=== PATIENT | male | born 1990 | race African-American/Black ===

== ENCOUNTER 2025-03-06 17:31 | Inpatient (IN) ==
[2025-03-06 17:57] LABS: Appearance Urine Clear (Clear); Glucose Urine UA Negative (Negative)
[2025-03-06 18:19] LABS: Amphetamines+Metham, Urine Neg (Neg); MDMA (Ecstacy), Urine Neg (Neg); Marijuana, Urine Neg (Neg)
[2025-03-06 18:29] LABS: Hematocrit (blood only) 41.3 % (42.0-52.0); Hemoglobin 14.4 g/dl (14.0-18.0); Mean Corpuscular Hemoglobin 28.1 pg (25.0-34.0); Mean Corpuscular Volume 80.7 fL (80.0-100.0); Platelet Count 224 K/uL (130-400); RDW Standard Deviation 45.0 fL (36.4-46.3); Red Blood Count 5.12 M/uL (4.70-6.10); White Blood Count 6.33 K/ul (4.8-10.8)
[2025-03-06 18:47] LABS: Alanine Aminotransferase 15.0 U/L (7-52); Albumin Globulin Ratio 1.3 (0.9-2); Albumin Level 4.1 gm/dl (3.4-5.0); Alkaline Phosphatase 95.0 U/L (34-104); Anion Gap 5.0 (3-11); Bilirubin,Total 0.3 mg/dl (0.2-1.0); Blood Urea Nitrogen 9.0 mg/dl (6-23); Calcium 8.9 mg/dl (8.6-10.3); Carbon Dioxide 22.0 mmol/L (21-32); Chloride 105.0 mmol/L (98-107); Creatinine Clr Calc Pharmacy 69.1 ml/min; Globulin 3.2 gm/dl (2.5-4.0); Glucose 85.0 mg/dl (70-99(Fasting)); Potassium 4.0 mmol/L (3.5-5.1); Sodium 132.0 mmol/L (136-145); Total Protein 7.3 gm/dl (6.0-8.3)
[2025-03-06 18:50] LABS: Immature Granulocytes # (auto) 0.01 K/uL (0.01-0.20); Immature Granulocytes % (auto) 0.2 %; Polychromasia 1+
[2025-03-06 19:03] LABS: Thyroid Stimulating Hormone 1.244 uIu/ml (0.300-4.500)
[2025-03-06 19:12] LABS: Acetaminophen < 3 ug/ml (10-30); Salicylate < 3.0 mg/dl (3.0-30)
--- NOTE | 2025-03-06 22:22 | Emergency Department Note ---
History of Present Illness General Chief complaint: Mental Health Evaluation Time Seen by Provider: 03/06/25 17:37 History of Present Illness Provider complaint: MEntal health evaluation Maximum Pain Intensity: 7 34-year-old male presents emergency department from [facility] for mental health evaluation. Patient is there for crack and meth abuse. Patient states he wants to after being there and wants to kill himself by slitting his wrist at [facility]. Home Medications Medication Instructions Recorded Confirmed Type bupropion HCl 100 mg tablet 100 mg PO QAM 03/06/25 03/06/25 History haloperidol decanoate 50 mg/mL 50 mg IM DIRECTED 03/06/25 03/06/25 History intramuscular solution lisinopril 5 mg tablet 5 mg PO DAILY 03/06/25 03/06/25 History melatonin 5 mg tablet 5 mg PO HS 03/06/25 03/06/25 History omeprazole 40 mg capsule,delayed 40 mg PO QAM 03/06/25 03/06/25 History release quetiapine 400 mg tablet 400 mg PO DAILY 03/06/25 03/06/25 History topiramate 100 mg tablet 100 mg PO BID 03/06/25 03/06/25 History umeclidinium 62.5 mcg-vilanterol 1 inh inhalation DAILY 03/06/25 03/06/25 History 25 mcg/actuation powdr for inhalation (Anoro Ellipta) Past Med/Surg History Problem List (Updated 03/06/25 @ 22:22 by Shai Knight MD) Suicidal ideations (Acute) Social History (Updated 03/06/25 @ 22:21 by Shai Knight MD) Smoking Status: Current every day smoker Tobacco Type: Cigarettes and E-cigarettes / Vaping Hx Substance Use: Yes Non-Prescribed Medications: Amphetamines and Crack / Cocaine Preferred Language: Citizen Of [place] Feels Safe at Home: Yes Physical Exam Vital Signs Vital Signs - 24 hr 03/06/25 17:40 03/06/25 19:58 Temperature 36.5 C Temperature Source Oral Pulse Rate 59 L Pulse Rate [Right Finger] 56 L Pulse Rhythm [Right Finger] Regular Pulse Strength [Right Finger] Normal Respiratory Rate 16 16 Respiratory Effort / Characteristics Non-Labored Respiratory Depth Normal Respiratory Pattern Regular Blood Pressure 123/86 Blood Pressure [Right Arm] 118/79 Blood Pressure Mean 98 Blood Pressure Mean [Right Arm] 92 Blood Pressure Position Semi-fowlers Blood Pressure Position [Right Arm] Lying Pulse Oximetry 100 99 Oxygen Delivery Method Room Air Room Air Sepsis Recent Fever Within 48 Hours No Sepsis New/Unexplained Change in Mental Status N/A Sepsis Action Taken by Nursing No Action Required Physical Exam GENERAL: oriented to person, place, and time. appears well-developed and well- nourished. HENT: Exam performed. - Head: Normocephalic and atraumatic. EYES: Conjunctivae and EOM are normal. Right eye exhibits no discharge. Left eye exhibits no discharge. No scleral icterus. NECK: Normal range of motion. Neck supple. No JVD present. CV: Normal rate, regular rhythm, normal heart sounds and intact distal pulses. There is no peripheral edema. Palpable radial pulses bue. PULM/CHEST: Effort normal and breath sounds normal. No respiratory distress. No stridor. no wheezes. no rales. NEURO: Motor and sensation grossly intact. PSYCH: Suicidal ideation. Course Course 173: The patient was evaluated in room A8. A complete history and physical exam was performed 2221: Vital signs stable. Patient medically cleared. Excepted to 3 S. Medical Decision Making Laboratory Data Attestation: I reviewed the patient's lab results. 03/06/25 18:01 03/06/25 18:01 Lab Results 03/06/25 03/06/25 Range/Units 17:40 18:01 WBC 6.33 (4.8-10.8) K/ul RBC 5.12 (4.70-6.10) M/uL Hgb 14.4 (14.0-18.0) g/dl Hct 41.3 L (42.0-52.0) % MCV 80.7 (80.0-100.0) fL MCH 28.1 (25.0-34.0) pg MCHC 34.9 (32.0-36.0) g/dL RDW Std Deviation 45.0 (36.4-46.3) fL RDW Coeff of Marjorie 15.3 H (11.5-14.5) % Plt Count 224 (130-400) K/uL MPV 10.4 (9.4-12.4) fL Immature Gran % (Auto) 0.2 % Neut % (Auto) 33.9 % Lymph % (Auto) 57.2 % [place] % (Auto) 7.3 % Eos % (Auto) 0.6 % Baso % (Auto) 0.8 % Neut # (Auto) 2.15 (1.40-6.50) K/uL Lymph # (Auto) 3.62 H (1.20-3.40) K/uL [place] # (Auto) 0.46 (0.11-0.59) K/uL Eos # (Auto) 0.04 (0.00-0.50) K/uL Baso # (Auto) 0.05 (0.00-0.20) K/uL Immature Gran # (Auto) 0.01 (0.01-0.20) K/uL Polychromasia 1+ Sodium 132 L (136-145) mmol/L Potassium 4.0 (3.5-5.1) mmol/L Chloride 105 (98-107) mmol/L Carbon Dioxide 22 (21-32) mmol/L Anion Gap 5 (3-11) BUN 9 (6-23) mg/dl Creatinine 1.29 (0.6-1.4) mg/dl Est Cr Clr Drug Dosing 69.1 ml/min eGFR 73.69 BUN/Creatinine Ratio 7.0 L (10-20) Glucose 85 (70-99(Fasting)) mg/dl Calcium 8.9 (8.6-10.3) mg/dl Total Bilirubin 0.3 (0.2-1.0) mg/dl AST 17 (13-39) U/L ALT 15 (7-52) U/L Alkaline Phosphatase 95 (34-104) U/L Total Protein 7.3 (6.0-8.3) gm/dl Albumin 4.1 (3.4-5.0) gm/dl Globulin 3.2 (2.5-4.0) gm/dl Albumin/Globulin Ratio 1.3 (0.9-2) TSH 1.244 (0.300-4.500) uIu/ml Urine Color Yellow Urine Appearance Clear (Clear) Urine pH 7.0 (4.5-7.5) Ur Specific [place] 1.004 (1.000-1.030) Urine Protein Negative (Negative) Urine Glucose (UA) Negative (Negative) Urine Ketones Negative (Negative) Urine Blood Negative (Negative) Urine Nitrite Negative (Negative) Urine Bilirubin Negative (Negative) Urine Urobilinogen Negative (Negative) Ur Leukocyte Esterase Negative (Negative) Urine Comment Salicylates < 3.0 L (3.0-30) mg/dl Urine Opiates Screen Neg (Neg) Ur Methadone, Qual Neg (Neg) Urine Fentanyl Screen Neg (Neg) Acetaminophen < 3 L (10-30) ug/ml Urine Barbiturates Neg (Neg) Ur Phencyclidine (PCP) Neg (Neg) U Amphetamin/Meth Scrn Neg (Neg) MDMA (Ecstasy) Screen Neg (Neg) U Benzodiazepines Scrn Neg (Neg) Ur Cocaine Metabolite Neg (Neg) U Marijuana (THC) Screen Neg (Neg) Ethyl Alcohol mg/dL < 10.0 (<10.0) mg/dl SARS-CoV-2, RNA, NAAT NEGATIVE (NEGATIVE) MDM Narrative 1737: The patient was evaluated in room A8. A complete history and physical exam was performed 2221: Vital signs stable. Patient medically cleared. Excepted to 3 S. Impression & Plan Suicidal ideations Discharge Plan Visit Data Chief Complaint: Mental Health Evaluation ED Provider: Shai Knight Discharge Problem: Suicidal ideations Patient Disposition: Admitted As Inpatient Condition: Fair Forms Stand Alone Forms: [facility], Suicide Prevention Resources Prescriptions Prescriptions: No Action omeprazole 40 mg capsule,delayed release(DR/EC) 40 mg PO QAM bupropion HCl 100 mg tablet 100 mg PO QAM haloperidol decanoate 50 mg/mL solution 50 mg IM DIRECTED Rx Instructions: EVERY TWO WEEKS lisinopril 5 mg tablet 5 mg PO DAILY topiramate 100 mg tablet 100 mg PO BID quetiapine 400 mg tablet 400 mg PO DAILY melatonin 5 mg tablet 5 mg PO HS umeclidinium-vilanterol [Anoro Ellipta] 62.5-25 mcg/actuation blister with device 1 inh INHALATION DAILY Referrals Referrals: PCP,NO [Primary Care Provider] -
[2025-03-06] MEDS ORDERED: ALUMINUM/MAGNESIUM SUSP 30 ML UDC PO PRN (23:07)
[2025-03-06] MEDS ORDERED: MAGNESIUM HYDROXIDE SUSP 30 ML UDC PO PRN (23:07)
[2025-03-06] MEDS ORDERED: BISMUTH SUBSALICYLATE 262 MG CHEW PO PRN (23:07)
[2025-03-06] MEDS ORDERED: SODIUM CHLORIDE 0.65% NA SOLN 45 ML (OCEAN) PRN (23:07)
[2025-03-06] MEDS: TOPIRAMATE 100 MG TAB PO STA (23:53)
[2025-03-06] MEDS: MELATONIN 3 MG TAB PO STA (23:53)
[2025-03-07] MEDS ORDERED: NICOTINE POLACRILEX 2 MG GUM MT PRN (00:59)
[2025-03-07] MEDS: TOPIRAMATE 100 MG TAB PO SCH (08:55)
--- NOTE | 2025-03-07 08:56 | History & Physical ---
Date of Service March 07, 2025 Impression / Recommendations Impression KAMALJIT JEAN-BAPTISTE is a 34-year-old M from [place], [place] who [facility], has a history of schizophrenia, bipolar disorder and BPD, and was admitted on 03/06/25 21:48 on a 201 voluntary commitment for suicidal ideation in the context of increasing auditory hallucinations during his withdrawal from psychostimulants. Differential diagnosis includes: Primary psychotic disorder versus substance- induced psychosis. evidence for substance-induced psychosis includes onset of psychotic symptoms occurred around onset of first drug use, around age 16, and has worsened while he is going through withdrawal. Evidence for primary psychotic disorder includes long-lasting auditory hallucinations that have come and gone over the past almost 20 years. The complicating factor, is that it is unclear how much sober time he has accumulated throughout those years as well. He stated he once remained sober for a full year from -, and did continue to have auditory hallucinations during that time, suggesting likely at this point he kindled a chronic psychotic disorder. Given his reports of significant mood fluctuations in the past, I did classify it as schizoaffective bipolar type. However the mood fluctuations could be complicated by his borderline personality diagnosis as well. Nonetheless, he does report he has previously had good stabilization on Haldol decanoate. H owever, he has been noticing lately that the shot seems to wear off several days to a week prior to when he is due for his next dose. He says he has tolerated the long-acting injectable well, and is interested in having an increase in his dose. I ordered 75 mg IM every 30 days, to be given today. I also ordered as needed Cogentin in case he develops EPS with the higher dose. It is likely that accumulating more sober time will also improve the intensity of the auditory hallucinations. He is already experiencing some relief being here as he feels safe on this unit. It is important to also keep in mind this patient's early developmental disruptions. He has possible early trauma, resulting in foster home placement around age 1. He also had early onset epilepsy, and a learning disorder which complicated his childhood. Finally, in adolescence he accumulated several concussions. finally, it is notable that patient's home medication list included 2 antipsychotics, Haldol and Seroquel. I did leave the Seroquel ordered for now while were adjusting the Haldol, and I will do my best to minimize use of the second antipsychotic if possible before discharge. Given he is already expe riencing auditory hallucinations, I did not see fit to decrease the Seroquel upon admission today. I will order fasting labs given he is on a second- generation antipsychotic. I also ordered a and an EKG for baseline QTc measurement. (1) Schizoaffective disorder: (2) Borderline personality disorder: (3) Learning disorder: (4) Head injuries: (5) GERD (gastroesophageal reflux disease): (6) Epilepsy: Plan the patient was admitted to the [facility] ([facility]) on q15 min checks (behavioral with suicide precautions) for safety. The patient will participate in group, recreational, and milieu therapies and will be offered additional individual and family sessions as clinically appropriate. New medications initiated: Haldol decanoate 75 mg every 30 days, first dose today melatonin 9 mg nightly Continue the following home medications: Topamax 100 mg twice daily Seroquel 400 mg daily at bedtime lisinopril 5 mg daily The following PRN medications will be started as well: Zofran 4 mg every 6 hours as needed nausea ibuprofen 600 mg every 6 hours as needed pain Vistaril 25 mg as needed anxiety Cogentin 1 mg twice daily as needed Overall, I spent a total of 80 minutes on this patients care, including review of chart/records, direct evaluation of the patient, ordering medication, coordination with nursing, interdisciplinary team meeting, and documentation. Inventory Assets Strengths: Desire for sobriety, help seeking and treatment oriented. Stable housing. Outpatient providers. Needs: Active psychosis, limited social supports/estranged from family Suicide Risk Level Suicide Risk Level: Moderate (q15 min suicide checks) Suicide Risk Level Comments: High-Moderate due to Active psychosis, previously with command hallucinations, and feeling overwhelmed. But feels safe in the hospital, able to contract for safety and agrees to let staff know should if plan or intent develops, or if patient feels unable to remain safe. Risk Factors Assessment Male: Yes Do You Have Access To A Gun?: No Health Problems: Yes Mental Health Diagnoses: Yes Substance Use Disorders: Yes Previous Attempt: Yes Previous Psychiatric Hospitalization: Yes Protective Factors Assessment : No Responsible for Young Children: No Employed: No Stable Relationships: No Supportive Family: No Good Rapport with Provider: Yes Psychiatric History Identifying Data KAMALJIT JEAN-BAPTISTE is a 34-year-old M from [place], [place] who currently was residing at [facility], has a history of schizophrenia, bipolar disorder and BPD, and was admitted on 03/06/25 21:48 on a 201 voluntary commitment for suicidal ideation in the context of increasing auditory hallucinations during his withdrawal from psychostimulants. Chief Complaint "My shot's not working" History of Present Illness Patient is not previously known to this unit. He does report a longstanding psychiatric history, including symptoms of primary psychotic disorder as well as manic depression and borderline personality. He was admitted to [facility] approximately 1 week ago for cocaine, crack and methamphetamine abuse. He said his last use was just prior to rehab, And he was using "a lot" daily for weeks. He could not estimate a quantity per day. Since he has been withdrawing, he has been experiencing cold sweats, shaking, brain fog, nausea and mood swings. Auditory hallucinations do occur off-and-on at baseline, but have been "stronger". As they were command in nature, telling him to hurt himself. He also was starting to have visual hallucinations, which he kiersten cribed as "entities", which could be shadowy in nature, or for instance he saw the bathroom like turning off and on. He denies any paranoia. The hallucinations were getting worse, to the point that he felt he could not take it, started having suicidal ideation, and asked for hospital admission. He does report he is due for his Haldol decanoate shot today. Patient reports that every month, around the time he is due for his shot, symptoms get worse for several days beforehand. Patient arrived late last night, and has been in bed since then. He also remains in bed due to back pain. He says "I tweaked it getting out of bed". Describes pain in the middle of his lower back, and denies radiation or numbness of his lower extremities. He reports he feels a little calmer on the unit. He does feel safe here. He continues to have suicidal ideation, but is not as intense. The voices are also "a little bit" quieter. Past Psychiatric History Previous Psych History: Developmental history is significant for patient being raised by his foster mom. He says he entered the system at age 1. He states he does have bio siblings, but then did not want to talk further about why he entered the foster system or where his siblings ended up. He did report he had a learning disability, and was in special education all day for the duration of his schooling. He made it to 12th grade and then failed. He said he is trying to get his GED now. he does also report he had multiple head injuries when he played football in high school. He states that auditory hallucinations started around age 16. It did start around the time he reported his first marijuana use, also at the age of 16. Cocaine and other psychostimulant use started later, about a year ago. He said his last inpatient hospitalization was in 2023 in [place], he is unsure how many total he has had. He does have a history of other rehab treatment in the past as well. He reports past diagnosis of bipolar disorder, and described ric as "I had get into a mood, and then I go on a binge." He be irritable and cut himself during those times. He also acknowledges a past diagnosis of borderline personality disorder He was in outpatient treatment and [place] just prior to coming here for rehab, and plans to return there for treatment eventually. He was living in housing through [facility] with a roommate. I believe it was [facility] that connected him with [facility]. No history. No reported legal history. Current Psychiatric Diagnosis: Substance induced psychosis Do You Have Access To A Gun?: No History of Previous Suicide Attempt: Yes Past Medication Trials: Listed as allergies are- BuSpar, fluoxetine, risperidone, trazodone patient reports Haldol DEC has worked very well for him in the past. Past Head Trauma/Neuro History History of Concussion/Seizure: Yes both concussions and seizures Allergies Allergy/AdvReac Type Severity Reaction Status Date / Time bee venom protein (honey bee) Allergy Unknown Unverified 03/06/25 23:22 buspirone Allergy Unknown Unverified 03/06/25 23:23 fluoxetine Allergy Unknown Unverified 03/06/25 23:23 risperidone Allergy Unknown Unverified 03/06/25 23:23 trazodone Allergy Unknown Unverified 03/06/25 23:24 Home Medications Medication Instructions Recorded Confirmed Type bupropion HCl 100 mg tablet 100 mg PO QAM 03/06/25 03/06/25 History haloperidol decanoate 50 mg/mL 50 mg IM DIRECTED 03/06/25 03/06/25 History intramuscular solution lisinopril 5 mg tablet 5 mg PO DAILY 03/06/25 03/06/25 History melatonin 5 mg tablet 5 mg PO HS 03/06/25 03/06/25 History omeprazole 40 mg capsule,delayed 40 mg PO QAM 03/06/25 03/06/25 History release quetiapine 400 mg tablet 400 mg PO DAILY 03/06/25 03/06/25 History topiramate 100 mg tablet 100 mg PO BID 03/06/25 03/06/25 History umeclidinium 62.5 mcg-vilanterol 1 inh inhalation DAILY 03/06/25 03/06/25 History 25 mcg/actuation powdr for inhalation (Anoro Ellipta) Family History Family History of: Doesn't Know Alcohol History Hx of Alcohol Use Over the Past 12 Months: Yes (1x per week. 3 beers per occasion) AUDIT Total Score: 3 Smoking Use Have You Smoked or Used Tobacco Products in the Last 30 Days: Yes tobacco type: cigarettes Smoking Status: Current every day smoker Smoking packs per day: 1 Substance History Hx of Prescription Med Misuse Over the Past 12 Months: No Hx of Over the Counter Med Misuse Over the Past 12 Months: No Hx of Inhalent Misuse Over the Past 12 Months: No Hx of Organic Substance Use Over the Past 12 Months: No Hx of Illegal Substances/Street Drug Use Over Past 12 Months: Yes (Crack cocaine and meth use prior to [facility] admission) Problems as a Result of Past Substance Use: Other Problems as a Result of Past Substance Use Comments: rehab Personal History Living Arrangements Comments: apartment funded by [employer], with a roommate in [place]. Was at [facility] rehab here. Born In: [place], [place] Childhood: Presumed early trauma given placed in foster care by age 1, and pt preferred to not discuss today. Highest Grade Completed: Did Not Graduate High School Highest Grade Completed Comment: 12th grade. Special education Marital Status: Single Number Of Children: 0 Beliefs That Will Affect Care: None Current Legal Problems: No Patient History Medical History GERD (gastroesophageal reflux disease) Head injuries Social History Smoking Status: Current every day smoker Tobacco Type: Cigarettes and E-cigarettes / Vaping Hx Substance Use: Yes Non-Prescribed Medications: Amphetamines and Crack / Cocaine Preferred Language: Slovak Communication Ability: Effective Financial Services Agent Required: No Beliefs That Will Affect Care: None Feels Safe at Home: Yes Gender Identity: Male Assistive Devices: Glasses Review of Systems Review of Systems: constitutional: No Weight Change, No Fever, +Chills, No Night Sweats ENT/Mouth: No Hearing Changes, No Nasal Congestion, No sore throat, No Swallowing Difficulty Eyes: No Vision Changes Cardiovascular: No Chest Pain, No SOB, No Edema, No Palpitations Respiratory: No Cough, No Wheezing, No Dyspnea Gastrointestinal: +Nausea, No Vomiting, No Diarrhea, No Constipation Urinary: No Frequency, No Hematuria, No Urinary Incontinence, No Dysuria Musculoskeletal: No Arthralgias, No Myalgias, No Joint Stiffness, + back pain Skin: No Skin Lesions, No Pruritis, No Hair Changes, Neuro: No Weakness, No Numbness, No Paresthesias, No Dizziness, No Headache, No Coordination Changes, No Recent Falls Heme/Lymph: No Bruising, No Bleeding Endocrine: No Polyuria, No Polydipsia, No Temperature Intolerance Physical Exam Psychiatric: Orientation: alert, oriented x 3, oriented to person and cooperative Apperance: appropriately dressed, appropriately groomed and appeared stated age Eye Contact: + fair eye contact Motor Behavior: no abnormal motor movements Speech: normal rate/rhythm/volume of speech Affect: + blunted affect and mood congruent with affect Mood: + depressed mood Thought Process: goal directed thought process, linear/logical thought process and clear/coherent thought process Thought Content: reality based without delusions Suicidal Thoughts: denies suicidal plan and denies suicidal intent; + reports suicidal thoughts Homicidal Thoughts: denies homicidal thoughts, denies homicidal plan and denies homicidal intent Hallucinations: + auditory hallucinations and + visual hallucinations Cognition: recent memory grossly intact, remote memory grossly intact, attention grossly intact and language grossly intact Estimated Intelligence: consistent with education level and + below average estimated intelligence Insight: + fair insight Judgment: + fair judgement Vital Signs (Past 24 Hours): Last Vital Signs Temp 36.7 C 03/07/25 06:20 Pulse 82 03/07/25 06:21 Resp 16 03/07/25 06:20 BP 99/69 L 03/07/25 06:21 Pulse Ox 99 03/06/25 23:15 O2 Del Method Room Air 03/06/25 23:15 Physical Examination: A physical exam was performed in the ED by Dr. Shai Knight for the purposes of medical clearance. I accept that physical as correct and adequate for the purposes of the inpatient physical exam. Results & Data ([facility]) Laboratory Results Laboratory Results - last 24 hr 03/06/25 03/06/25 17:40 18:01 WBC 6.33 RBC 5.12 Hgb 14.4 Hct 41.3 L MCV 80.7 MCH 28.1 MCHC 34.9 RDW Std Deviation 45.0 RDW Coeff of Marjorie 15.3 H Plt Count 224 MPV 10.4 Immature Gran % (Auto) 0.2 Neut % (Auto) 33.9 Lymph % (Auto) 57.2 [place] % (Auto) 7.3 Eos % (Auto) 0.6 Baso % (Auto) 0.8 Neut # (Auto) 2.15 Lymph # (Auto) 3.62 H [place] # (Auto) 0.46 Eos # (Auto) 0.04 Baso # (Auto) 0.05 Immature Gran # (Auto) 0.01 Polychromasia 1+ Sodium 132 L Potassium 4.0 Chloride 105 Carbon Dioxide 22 Anion Gap 5 BUN 9 Creatinine 1.29 Est Cr Clr Drug Dosing 69.1 eGFR 73.69 BUN/Creatinine Ratio 7.0 L Glucose 85 Calcium 8.9 Total Bilirubin 0.3 AST 17 ALT 15 Alkaline Phosphatase 95 Total Protein 7.3 Albumin 4.1 Globulin 3.2 Albumin/Globulin Ratio 1.3 TSH 1.244 Urine Color Yellow Urine Appearance Clear Urine pH 7.0 Ur Specific [place] 1.004 Urine Protein Negative Urine Glucose (UA) Negative Urine Ketones Negative Urine Blood Negative Urine Nitrite Negative Urine Bilirubin Negative Urine Urobilinogen Negative Ur Leukocyte Esterase Negative Urine Comment Salicylates < 3.0 L Urine Opiates Screen Neg Ur Methadone, Qual Neg Urine Fentanyl Screen Neg Acetaminophen < 3 L Urine Barbiturates Neg Ur Phencyclidine (PCP) Neg U Amphetamin/Meth Scrn Neg MDMA (Ecstasy) Screen Neg U Benzodiazepines Scrn Neg Ur Cocaine Metabolite Neg U Marijuana (THC) Screen Neg Ethyl Alcohol mg/dL < 10.0 SARS-CoV-2, RNA, NAAT NEGATIVE Current Inpatient Medications Current Inpatient Medications: Current Inpatient Medications Acetaminophen (Acetaminophen 325 Mg Tab) 650 mg PO Q4H PRN PRN Reason: Headache or Minor Fever Stop: 04/05/25 23:06 Al Hydrox/Mg Hydrox/Simethicone (Aluminum/Magnesium Susp 30 Ml Udc) 30 ml PO Q4H PRN PRN Reason: GI Upset Stop: 04/05/25 23:06 Bismuth Subsalicylate (Bismuth Subsalicylate 262 Mg Chew) 2 tab PO Q30M PRN PRN Reason: Loose Stool/Diarrhea Stop: 04/05/25 23:06 Hydroxyzine HCl (Hydroxyzine Hcl 25 Mg Tab) 50 mg PO HSZ PRN PRN Reason: Insomnia Stop: 04/05/25 23:06 Hydroxyzine HCl (Hydroxyzine Hcl 25 Mg Tab) 25 mg PO Q4H PRN PRN Reason: Anxiety Stop: 04/05/25 23:06 Influenza Virus Vacc Triv Types A&B (Influenza Vacc [id number](6m+)/Pf (Iiv3) 0.5ml Syr) 0.5 ml IM .ONCE ONE Stop: 03/07/25 09:01 Lisinopril (Lisinopril 5 Mg Tab) 5 mg PO QAM JEAN MARIE Stop: 04/06/25 08:59 Magnesium Hydroxide (Magnesium Hydroxide Susp 30 Ml Udc) 30 ml PO DAILY PRN PRN Reason: Constipation Stop: 04/05/25 23:06 Melatonin (Melatonin 3 Mg Tab) 6 mg PO HS JEAN MARIE Stop: 04/06/25 21:59 Nicotine Polacrilex (Nicotine Polacrilex 2 Mg Gum) 1 piece MT Q2H PRN PRN Reason: Nicotine Withdrawal Symptoms Stop: 04/06/25 00:58 Olanzapine (Olanzapine 5 Mg Tablet) 5 mg PO Q6 PRN PRN Reason: hallucinations/agitation Stop: 04/06/25 00:00 Pantoprazole Sodium (Pantoprazole 40 Mg Tab) 40 mg PO QAM JEAN MARIE Stop: 04/06/25 08:59 Quetiapine Fumarate (Quetiapine Fumarate 200 Mg Tab) 400 mg PO HS JEAN MARIE Stop: 04/06/25 21:59 Sodium Chloride (Sodium Chloride 0.65% Na Soln 45 Ml ([place])) 1 - 2 sprays NA PRN PRN PRN Reason: Nasal Dryness/Congestion Stop: 04/05/25 23:06 Topiramate (Topiramate 100 Mg Tab) 100 mg PO BID JEAN MARIE Stop: 04/06/25 08:59
[2025-03-07] MEDS: ACETAMINOPHEN 325 MG TAB PO PRN (09:54)
[2025-03-07] MEDS ORDERED: BENZTROPINE MESYLATE 1 MG TAB PO PRN (15:51)
[2025-03-07] MEDS: HALOPERIDOL DECANOATE INJ 50 MG/ML VIAL IM SCH (16:14)
[2025-03-07] MEDS ORDERED: ONDANSETRON 4 MG OD TAB PO PRN (16:18)
[2025-03-07] MEDS ORDERED: IBUPROFEN 600 MG TAB PO PRN (16:18)
[2025-03-07] MEDS: MELATONIN 3 MG TAB PO SCH (21:06)
[2025-03-07] MEDS ORDERED: MELATONIN 3 MG TAB PO SCH ×2 (22:00)
[2025-03-08 08:05] LABS: Anion Gap 6.0 (3-11); Blood Urea Nitrogen 18.0 mg/dl (6-23); Calcium 9.1 mg/dl (8.6-10.3); Carbon Dioxide 22.0 mmol/L (21-32); Chloride 105.0 mmol/L (98-107); Cholesterol 176.0 mg/dl (0-200); Creatinine Clr Calc Pharmacy 64.2 ml/min; Glucose 99.0 mg/dl (70-99(Fasting)); HDL Cholesterol 43.0 mg/dl; Potassium 4.1 mmol/L (3.5-5.1); Sodium 133.0 mmol/L (136-145); Triglycerides 152.0 mg/dl (0-150)
--- NOTE | 2025-03-08 08:51 | Psychiatric Progress Note ---
Date of Service March 08, 2025 Impression / Recommendations Impression KAMALJIT JEAN-BAPTISTE is a 34-year-old M from [place], [place] who currently was residing at [facility], has a history of schizophrenia, bipolar disorder and BPD, and was admitted on 03/06/25 21:48 on a 201 voluntary commitment for suicidal ideation in the context of increasing auditory hallucinations during his withdrawal from psychostimulants. Differential diagnosis includes: Primary psychotic disorder versus substance- induced psychosis. evidence for substance-induced psychosis includes onset of psychotic symptoms occurred around onset of first drug use, around age 16, and has worsened while he is going through withdrawal. Evidence for primary psychotic disorder includes long-lasting auditory hallucinations that have come and gone over the past almost 20 years. The complicating factor, is that it is unclear how much sober time he has accumulated throughout those years as well. He stated he once remained sober for a full year from -, and did continue to have auditory hallucinations during that time, suggesting likely at this point he kindled a chronic psychotic disorder. Given his reports of significant mood fluctuations in the past, I did classify it as schizoaffective bipolar type. However the mood fluctuations could be complicated by his borderline personality diagnosis as well. Nonetheless, he does report he has previously had good stabilization on Haldol decanoate. H owever, he has been noticing lately that the shot seems to wear off several days to a week prior to when he is due for his next dose. He says he has tolerated the long-acting injectable well, and is interested in having an increase in his dose. I ordered 75 mg IM every 30 days, to be given today. I also ordered as needed Cogentin in case he develops EPS with the higher dose. It is likely that accumulating more sober time will also improve the intensity of the auditory hallucinations. He is already experiencing some relief being here as he feels safe on this unit. It is important to also keep in mind this patient's early developmental disruptions. He has possible early trauma, resulting in foster home placement around age 1. He also had early onset epilepsy, and a learning disorder which complicated his childhood. Finally, in adolescence he accumulated several concussions. finally, it is notable that patient's home medication list included 2 antipsychotics, Haldol and Seroquel. I did leave the Seroquel ordered for now while were adjusting the Haldol, and I will do my best to minimize use of the second antipsychotic if possible before discharge. Given he is already expe riencing auditory hallucinations, I did not see fit to decrease the Seroquel upon admission today. I will order fasting labs given he is on a second- generation antipsychotic. I also ordered a and an EKG for baseline QTc measurement. A: patient reporting full resolution of both suicidal ideations and auditory/visual hallucinations. He is actually requesting to transfer back to the rehab as he plans to complete his treatment there. I encouraged him to attend programming here to show that he is ready for the programming back at [facility]. He was receptive to this. No medication changes needed today. Will have social work touch in with [facility] regarding possible transfer tomorrow, if patient's symptoms remain stable. (1) Schizoaffective disorder: (2) Borderline personality disorder: (3) Learning disorder: (4) Head injuries: (5) GERD (gastroesophageal reflux disease): (6) Epilepsy: Plan 03/08/25: good improvement. Continue current medication and treatment. 03/07/25: The patient was admitted to the [facility] ([facility] unit) on q15 min checks (behavioral with suicide precautions) for safety. The patient will participate in group, recreational, and milieu therapies and will be offered additional individual and family sessions as clinically appropriate. New medications initiated: Haldol decanoate 75 mg every 30 days, first dose today melatonin 9 mg nightly Continue the following home medications: Topamax 100 mg twice daily Seroquel 400 mg daily at bedtime lisinopril 5 mg daily The following PRN medications will be started as well: Zofran 4 mg every 6 hours as needed nausea ibuprofen 600 mg every 6 hours as needed pain Vistaril 25 mg as needed anxiety Cogentin 1 mg twice daily as needed Overall, I spent a total of 25 minutes on this patients care, including review of chart/records, direct evaluation of the patient, ordering medication, coordination with nursing, interdisciplinary team meeting, and documentation. Inventory Assets Strengths: Desire for sobriety, help seeking and treatment oriented. Stable housing. Outpatient providers. Needs: Active psychosis, limited social supports/estranged from family Suicide Risk Level Suicide Risk Level: Low (q15 min observation checks) Suicide Risk Level Comments: Low, since both psychosis and suicidal thoughts have resolved. feels safe in the hospital, able to contract for safety and agrees to let staff know should if plan or intent develops, or if patient feels unable to remain safe. Risk Factors Assessment Male: Yes Do You Have Access To A Gun?: No Health Problems: Yes Mental Health Diagnoses: Yes Substance Use Disorders: Yes Previous Attempt: Yes Previous Psychiatric Hospitalization: Yes Hopelessness: No Protective Factors Assessment : No Responsible for Young Children: No Employed: No Stable Relationships: No Supportive Family: No Good Rapport with Provider: Yes Interval History Chief Complaint "[]". Review of Systems Sleep Information Total Hours of Sleep: 10.25 Sleep Comments: Admitted early in shift Meal Information Percent Meal Consumed - Breakfast: 75 Percent Meal Consumed - Lunch: 100 Percent Meal Consumed - Dinner: 100 Subjective Subjective Patient was seen & assessed and interval progress reviewed with [nursing and social work Per report: mood 05/28 and "content" isolative other than meals slept 10.25 hrs adherent with meds haldol dec given - also requested PRN haldol PO for distressing flashback at pt's request I met with the patient privately in his room. he reported that suicidal ideation and auditory hallucinations resolved yesterday and have not recurred. He said he is feeling very good, reports his mood today is 9 out of 10. Adverse reactions to the increased Haldol dose. He did have a distressing flashback last evening, but this has not recurred. He has been more visible and out of his room so far today. I encouraged him to attend groups, and he was quite receptive to that. He said his back pain is still present, but much better than yesterday. He is looking forward to going back to the rehab, and actually requested for transfer today. Physical Exam Psychiatric Orientation: alert, oriented x 3, oriented to person and cooperative Apperance: appropriately dressed and appropriately groomed Eye Contact: good eye contact Motor Behavior: steady gait and station and no abnormal motor movements; n EPS Speech: normal rate/rhythm/volume of speech Affect: euthymic affect and mood congruent with affect Euthymic Thought Process: goal directed thought process, linear/logical thought process, clear/coherent thought process and thought association intact Thought Content: reality based without delusions Suicidal Thoughts: denies suicidal thoughts, denies suicidal plan and denies suicidal intent Homicidal Thoughts: denies homicidal thoughts, denies homicidal plan and denies homicidal intent Hallucinations: no auditory hallucinations and no visual hallucinations Cognition: recent memory grossly intact, remote memory grossly intact, attention grossly intact and language grossly intact Estimated Intelligence: consistent with education level Insight: good insight Judgment: good judgement Vital Signs (Past 24 Hours) Last Vital Signs Temp 36.7 C 03/08/25 06:26 Pulse 87 03/08/25 06:27 Resp 16 03/08/25 06:26 BP 113/79 03/08/25 06:27 Pulse Ox 99 03/06/25 23:15 O2 Del Method Room Air 03/06/25 23:15 A physical exam was performed in the ED by Dr. Shai Knight for the purposes of medical clearance. I accept that physical as correct and adequate for the purposes of the inpatient physical exam. Results & Data ([facility]) Laboratory Results Laboratory Results - last 24 hr 03/08/25 07:32 Sodium 133 L Potassium 4.1 Chloride 105 Carbon Dioxide 22 Anion Gap 6 BUN 18 Creatinine 1.39 Est Cr Clr Drug Dosing 64.2 eGFR 67.38 BUN/Creatinine Ratio 12.9 Glucose 99 Estimat Average Glucose Pending Hemoglobin A1c Pending Calcium 9.1 Triglycerides 152 H Cholesterol 176 LDL Cholesterol, Calc 103 VLDL Cholesterol, Calc 30 HDL Cholesterol 43 Cholesterol/HDL Ratio 4.1 Current Inpatient Medications Current Inpatient Medications: Current Inpatient Medications Acetaminophen (Acetaminophen 325 Mg Tab) 650 mg PO Q4H PRN PRN Reason: Headache or Minor Fever Stop: 04/05/25 23:06 Last Admin: 03/07/25 09:54 Dose: 650 mg Al Hydrox/Mg Hydrox/Simethicone (Aluminum/Magnesium Susp 30 Ml Udc) 30 ml PO Q4H PRN PRN Reason: GI Upset Stop: 04/05/25 23:06 Benztropine Mesylate (Benztropine Mesylate 1 Mg Tab) 1 mg PO BID PRN PRN Reason: EPS Stop: 04/06/25 20:59 Bismuth Subsalicylate (Bismuth Subsalicylate 262 Mg Chew) 2 tab PO Q30M PRN PRN Reason: Loose Stool/Diarrhea Stop: 04/05/25 23:06 Haloperidol Decanoate (Haloperidol Decanoate Inj 50 Mg/Ml Vial) 75 mg IM Q30D JEAN MARIE Stop: 04/06/25 15:59 Last Admin: 03/07/25 16:14 Dose: 75 mg Hydroxyzine HCl (Hydroxyzine Hcl 25 Mg Tab) 50 mg PO HSZ PRN PRN Reason: Insomnia Stop: 04/05/25 23:06 Hydroxyzine HCl (Hydroxyzine Hcl 25 Mg Tab) 25 mg PO Q4H PRN PRN Reason: Anxiety Stop: 04/05/25 23:06 Ibuprofen (Ibuprofen 600 Mg Tab) 600 mg PO QID PRN PRN Reason: Moderate Pain (Scale 4, 5, 6) Stop: 04/06/25 16:59 Lisinopril (Lisinopril 5 Mg Tab) 5 mg PO QAM JEAN MARIE Stop: 04/06/25 08:59 Last Admin: 03/07/25 09:54 Dose: 5 mg Magnesium Hydroxide (Magnesium Hydroxide Susp 30 Ml Udc) 30 ml PO DAILY PRN PRN Reason: Constipation Stop: 04/05/25 23:06 Melatonin (Melatonin 3 Mg Tab) 9 mg PO HS JEAN MARIE Stop: 04/06/25 21:59 Last Admin: 03/07/25 21:06 Dose: 9 mg Nicotine Polacrilex (Nicotine Polacrilex 2 Mg Gum) 1 piece MT Q2H PRN PRN Reason: Nicotine Withdrawal Symptoms Stop: 04/06/25 00:58 Ondansetron HCl (Ondansetron 4 Mg Od Tab) 4 mg PO Q6H PRN PRN Reason: Nausea Stop: 04/06/25 16:17 Pantoprazole Sodium (Pantoprazole 40 Mg Tab) 40 mg PO QAM JEAN MARIE Stop: 04/06/25 08:59 Last Admin: 03/07/25 08:55 Dose: 40 mg Quetiapine Fumarate (Quetiapine Fumarate 200 Mg Tab) 400 mg PO HS JEAN MARIE Stop: 04/06/25 21:59 Last Admin: 03/07/25 21:05 Dose: 400 mg Sodium Chloride (Sodium Chloride 0.65% Na Soln 45 Ml ([place])) 1 - 2 sprays NA PRN PRN PRN Reason: Nasal Dryness/Congestion Stop: 04/05/25 23:06 Topiramate (Topiramate 100 Mg Tab) 100 mg PO BID JEAN MARIE Stop: 04/06/25 08:59 Last Admin: 03/07/25 21:05 Dose: 100 mg Mental Health & Subst Abuse Tx Therapist Name of Therapist: Nayely shoemaker [facility] Report [facility] Name of Report Checker: [facility] [place]
[2025-03-08 11:21] LABS: Hemoglobin A1C 5.6 % (4.5-5.6)
--- NOTE | 2025-03-09 06:07 | Electrocardiogram Report ---
Test Reason : Blood Pressure : */* mmHG Vent. Rate : 59 BPM Atrial Rate : 59 BPM P-R Int : 162 ms QRS Dur : 84 ms QT Int : 392 ms P-R-T Axes : 45 6 28 degrees QTcB Int : 388 ms Sinus bradycardia Septal infarct , age undetermined Abnormal ECG No previous ECGs available Confirmed by Abhishek Hogan ([id number]) on 03/09/2025 6:07:03 AM Referred By: REFERRED SELF Confirmed By: Abhishek Hogan
[2025-03-09] MEDS: INFLUENZA VACC TS2025-26(6m+)/PF (IIV3) 0.5mL Syr IM ONE (09:28)
--- NOTE | 2025-03-10 14:02 | Discharge Summary ---
Date of Service March 10, 2025 History of Present Illness Patient is not previously known to this unit. He does report a longstanding psychiatric history, including symptoms of primary psychotic disorder as well as manic depression and borderline personality. He was admitted to [facility] rehab approximately 1 week ago for cocaine, crack and methamphetamine abuse. He said his last use was just prior to rehab, And he was using "a lot" daily for weeks. He could not estimate a quantity per day. Since he has been withdrawing, he has been experiencing cold sweats, shaking, brain fog, nausea and mood swings. Auditory hallucinations do occur off-and-on at baseline, but have been "stronger". As they were command in nature, telling him to hurt himself. He also was starting to have visual hallucinations, which he described as "entities", which could be shadowy in nature, or for instance he saw the bathroom like turning off and on. He denies any paranoia. The hallucinations were getting worse, to the point that he felt he could not take it, started having suicidal ideation, and asked for hospital admission. He does report he is due for his Haldol decanoate shot today. Patient reports that every month, around the time he is due for his shot, symptoms get worse for several days beforehand. Patient arrived late last night, and has been in bed since then. He also remains in bed due to back pain. He says "I tweaked it getting out of bed". Describes pain in the middle of his lower back, and denies radiation or numbness of his lower extremities. He reports he feels a little calmer on the unit. He does feel safe here. He continues to have suicidal ideation, but is not as i ntense. The voices are also "a little bit" quieter. Physical Exam Psychiatric Orientation: alert, oriented x 3 and cooperative Apperance: appropriately dressed and appropriately groomed Eye Contact: good eye contact Motor Behavior: steady gait and station and no abnormal motor movements Speech: normal rate/rhythm/volume of speech Affect: euthymic affect "happy" Thought Process: goal directed thought process, linear/logical thought process and clear/coherent thought process Thought Content: reality based without delusions Suicidal Thoughts: denies suicidal thoughts, denies suicidal plan and denies suicidal intent Homicidal Thoughts: denies homicidal thoughts, denies homicidal plan and denies homicidal intent Hallucinations: no auditory hallucinations and no visual hallucinations Cognition: recent memory grossly intact, remote memory grossly intact, attention grossly intact and language grossly intact Estimated Intelligence: consistent with education level Insight: good insight Judgment: good judgement Vital Signs (Past 24 Hours) Last Vital Signs Temp 36.7 C 03/09/25 10:51 Pulse 85 03/09/25 10:51 Resp 16 03/09/25 10:51 BP 116/81 03/09/25 10:51 Pulse Ox 99 03/09/25 10:51 O2 Del Method Room Air 03/06/25 23:15 A physical exam was performed in the ED by Dr. Shai Knight for the purposes of medical clearance. I accept that physical as correct and adequate for the purposes of the inpatient physical exam. Principal Diagnosis Schizoaffective disorder Psychiatric Data See daily stay summary. In short, safety was maintained and the patient was cooperative with care. Medication changes included increasing Haldol decanoate to 75mg. It was administered here and they tolerated this well. They immeidately reported resolution of AVH and SI. He was then visible on the unit, participated in groups and displayed a bright affect. No recurrence of hallucinations or SI occurred before discharge. A family session was declined. Pt's safety plan was completed prior to discharge. He requested to return to [facility] to complete D+A treatment. [facility] was contacted, and agreed to accept him back. Day of Discharge Assessment Today the patient voices readiness for discharge. They note improvement in mood and deny thoughts to harm self or others. Thoughts remain organized and they are improved from admission. There is no evidence of psychosis. They agree to take mediations as prescribed and keep follow-up appointments. They are stable for discharge to outpatient level of care. Transition of Care Transition Of Care Record: was reviewed with the patient Advance Directives Advance Directives Information Provided: Yes Advance Directives: No Mental Health Advance Directive: No Advance Directives on File: No Living Will: No Power of Disk Recordist: No Advance Directives Reason:: Declines as Mental Health Visit. Suicide Risk Level Suicide Risk Level Comments: Low, since both psychosis and suicidal thoughts have resolved. feels safe in the hospital, able to contract for safety and agrees to let staff know should if plan or intent develops, or if patient feels unable to remain safe. Risk Factors Assessment Male: Yes Do You Have Access To A Gun?: No Health Problems: Yes Mental Health Diagnoses: Yes Substance Use Disorders: Yes Previous Attempt: Yes Previous Psychiatric Hospitalization: Yes Hopelessness: No Protective Factors Assessment : No Responsible for Young Children: No Employed: No Stable Relationships: No Supportive Family: No Good Rapport with Provider: Yes Antipsychotic Medications Pt is on 2 antipsychotics for difficult to manage psychotic symptoms. He remains on seroquel for mood and sleep, which Haldol dec maintains the psychotic symptoms effectively. Pt is aware of risks and agrees with this plan. The patient is continuing 2 antipsychotics due to: A history of a minimum of 3 failed trials of monotherapy (LIST): haldol dec, risperidone, seroquel Total Time Total Time Spent: Greater Than 30 Minutes Total Time Includes: Examination of the patient, Discharge Planning, Medication Reconciliation and As well as (documentation) Discharge Data Lab Results 03/06/25 03/06/25 03/08/25 17:40 18:01 07:32 WBC 6.33 RBC 5.12 Hgb 14.4 Hct 41.3 L MCV 80.7 MCH 28.1 MCHC 34.9 RDW Std Deviation 45.0 RDW Coeff of Marjorie 15.3 H Plt Count 224 MPV 10.4 Immature Gran % (Auto) 0.2 Neut % (Auto) 33.9 Lymph % (Auto) 57.2 Milam % (Auto) 7.3 Eos % (Auto) 0.6 Baso % (Auto) 0.8 Neut # (Auto) 2.15 Lymph # (Auto) 3.62 H Milam # (Auto) 0.46 Eos # (Auto) 0.04 Baso # (Auto) 0.05 Immature Gran # (Auto) 0.01 Polychromasia 1+ Sodium 132 L 133 L Potassium 4.0 4.1 Chloride 105 105 Carbon Dioxide 22 22 Anion Gap 5 6 BUN 9 18 Creatinine 1.29 1.39 Est Cr Clr Drug Dosing 69.1 64.2 eGFR 73.69 67.38 BUN/Creatinine Ratio 7.0 L 12.9 Glucose 85 99 Estimat Average Glucose 114 Hemoglobin A1c 5.6 Calcium 8.9 9.1 Total Bilirubin 0.3 AST 17 ALT 15 Alkaline Phosphatase 95 Total Protein 7.3 Albumin 4.1 Globulin 3.2 Albumin/Globulin Ratio 1.3 Triglycerides 152 H Cholesterol 176 LDL Cholesterol, Calc 103 VLDL Cholesterol, Calc 30 HDL Cholesterol 43 Cholesterol/HDL Ratio 4.1 TSH 1.244 Urine Color Yellow Urine Appearance Clear Urine pH 7.0 Ur Specific [place] 1.004 Urine Protein Negative Urine Glucose (UA) Negative Urine Ketones Negative Urine Blood Negative Urine Nitrite Negative Urine Bilirubin Negative Urine Urobilinogen Negative Ur Leukocyte Esterase Negative Urine Comment Salicylates < 3.0 L Urine Opiates Screen Neg Ur Methadone, Qual Neg Urine Fentanyl Screen Neg Acetaminophen < 3 L Urine Barbiturates Neg Ur Phencyclidine (PCP) Neg U Amphetamin/Meth Scrn Neg MDMA (Ecstasy) Screen Neg U Benzodiazepines Scrn Neg Ur Cocaine Metabolite Neg U Marijuana (THC) Screen Neg Ethyl Alcohol mg/dL < 10.0 SARS-CoV-2, RNA, NAAT NEGATIVE Hospital Course (1) Schizoaffective disorder: (2) Borderline personality disorder: (3) Learning disorder: (4) Head injuries: (5) GERD (gastroesophageal reflux disease): (6) Epilepsy: Plan 03/09/25: Symptoms remain stable. Bright affect and no AVH. Good participation in programming. Planning for d/c back to [facility] today. 03/08/25: good improvement. Continue current medication and treatment. 03/07/25: The patient was admitted to the [facility] ([facility] mental [facility] unit) on q15 min checks (behavioral with suicide precautions) for safety. The patient will participate in group, recreational, and milieu therapies and will be offered additional individual and family sessions as clinically appropriate. New medications initiated: Haldol decanoate 75 mg every 30 days, first dose today melatonin 9 mg nightly Continue the following home medications: Topamax 100 mg twice daily Seroquel 400 mg daily at bedtime lisinopril 5 mg daily The following PRN medications will be started as well: Zofran 4 mg every 6 hours as needed nausea ibuprofen 600 mg every 6 hours as needed pain Vistaril 25 mg as needed anxiety Cogentin 1 mg twice daily as needed Mental Health & Subst Abuse Tx Therapist Name of Therapist: Nayely through [facility] Name of Red [place]: Joanna Rivera Post Discharge Appointments Other #1: Name of Aftercare Appointment: [facility] Phone Number of Aftercare Appointment: [phone] Release of Information Aftercare Appointment: Obtained, Reviewed and Signed Contact Information Discharge Discharge Address: [place], [address] Discharge Plan Discharge Items Patient Disposition: Drug & Alcohol Rehab Reason For Visit: SUBSTANCE INDUCED PSYCHOSIS Discharge Diagnosis: Schizoaffective disorder Condition on Discharge: Good Activity: Resume your previous activity Non-emergency contact: Primary Care Provider, Psychiatrist and Therapist Call non-emergency contact if: you have any medication questions and your symptoms worsen Follow-up/Referrals: PCP,NO [Primary Care Provider] - Diet: Regular Addtl Attending Provider Instructions: YOU WILL BE RETURNING TO [facility] FOR COMPLETION OF YOUR DRUG AND ALCOHOL TREATMENT. THEY WILL HELP YOU ARRANGE OUTPATIENT FOLLOW-UP FROM THERE. SPECIAL CARE INSTRUCTIONS: 1. Follow through with your scheduled aftercare appointments. If unable to keep an appointment, please call to reschedule. 2. Take your medication only as prescribed. Medication should not be changed or stopped without the approval of your doctor. In the event of worsening symptoms or concerns about side effects, contact your doctor immediately. 3. Utilize new healthy coping skills, anger management skills, and stress management skills learned during your hospitalization. Journal feelings and process them with a support person. Identify stressors or situations that may result in relapse, deterioration or inappropriate behaviors and develop a plan to deal with those issues. 4. If your coping skills are ineffective and you are in crisis, contact your outpatient providers for direction. If unable to reach your providers, please call the [facility] CRISIS LINE AT , go to the [facility] walk-in center at [address], [address], [place], or go to the closest Emergency Room. 5. Avoid alcohol and un-prescribed drugs. 6. You have been provided with the Mental Health Advance Directives Pamphlet for your review. 7. Your condition is stable for discharge to outpatient level of care, but recovery is an ongoing process. Ifthoughts to harm yourself or others return, follow the safety plan developed during your stay. Planning for a safe return home includes securing weapons. Our treatment team recommends weaponsbe removed from the home until your outpatient provider reassesses your progress. In rare cases where the items themselvescannot be removed, guns and ammunitionshould be secured separatelyand keys stored by a reliable personoutside of the home. If you were admitted on an involuntary commitment, the police or other legal authorities may be involved in this process. AFTERCARE APPOINTMENTS: * Please call your insurance company prior to your scheduled appointment to confirm your aftercare providers are covered. Take your insurance information to your appointments. WHO TO CALL AND WHEN: Medical Emergencies: For questions or emergencies related to your hospital stay, please contact the Inpatient Behavioral Health Unit at [phone]. A facility maintenance helper is on-call 09/12 for the Behavioral Health Unit for emergencies At any time you feel your situation is an emergency, you may also call 911 immediately. Pending Studies at Discharge: No Stand-Alone Forms: My [facility] Skilled Items Patient informed of condition?: Yes DNR: No Discharge Level of Care: Other Communicable Disease: No Discharge Prognosis: Stable Lines: None Urinary Catheter: No Medications and DC Order Prescriptions: New melatonin 3 mg Tablet 9 mg PO HS 30 Days Qty: 90 0RF haloperidol decanoate 50 mg/mL Solution 75 mg IM Q14D 30 Days Qty: 4.5 0RF Continued omeprazole 40 mg capsule,delayed release(DR/EC) 40 mg PO QAM lisinopril 5 mg tablet 5 mg PO DAILY topiramate 100 mg tablet 100 mg PO BID quetiapine 400 mg tablet 400 mg PO DAILY umeclidinium-vilanterol [Anoro Ellipta] 62.5-25 mcg/actuation blister with device 1 inh INHALATION DAILY Discontinued bupropion HCl 100 mg tablet 100 mg PO QAM haloperidol decanoate 50 mg/mL solution 50 mg IM DIRECTED Rx Instructions: EVERY TWO WEEKS melatonin 5 mg tablet 5 mg PO HS Discharge Orders: Discharge Order (Routine); Ordered 03/09/25 Ordered By: Maribell Hoover Admission Data Admit Date/Time: 03/06/25 21:48 Attending Provider: Maribell Hoover Admit Provider: Maribell Hoover Primary Care Provider: PCP,NO Other Interventions: Discharge Summary Assessment (RN) Last Done: 03/09/25 10:51 PSY Interdisciplinary Discharge Planning Last Done: 03/09/25 10:51 Coding Level of Care Code 52046 D/C day mgmt > 30 min Diagnoses Schizoaffective disorder F25.9 Borderline personality disorder F60.3 Learning disorder F81.9 Head injuries S09.90XA GERD (gastroesophageal reflux disease) K21.9 Epilepsy G40.909
== END 2025-03-09 11:05 | disposition alcohol treatment (31) | DRG 897 ==
LOC: ED 17:31 → 3S 21:48
DX: M54.50 Low back pain, unspecified; Z79.899 Other long term (current) drug therapy; Z11.52 Encounter for screening for COVID-19; K21.9 Gastro-esophageal reflux disease without esophagitis; F25.9 Schizoaffective disorder, unspecified; S09.90XA Unspecified injury of head, initial encounter; F81.9 Developmental disorder of scholastic skills, unspecified; F17.210 Nicotine dependence, cigarettes, uncomplicated; Z88.8 Allergy status to other drugs, medicaments and biological substances; F60.3 Borderline personality disorder; F15.10 Other stimulant abuse, uncomplicated; G40.909 Epilepsy, unspecified, not intractable, without status epilepticus; F14.10 Cocaine abuse, uncomplicated; F19.131 Other psychoactive substance abuse with withdrawal delirium; R45.851 Suicidal ideations; F17.290 Nicotine dependence, other tobacco product, uncomplicated; Y33.XXXA Other specified events, undetermined intent, initial encounter; F31.9 Bipolar disorder, unspecified